=== PATIENT | male | born 1995 | race Caucasian/White ===

== ENCOUNTER 2023-08-15 11:48 | Emergency (ER) | payer BC, MEDICAID ==
[~2023-08-15] VITALS: Ht 177.8 cm; Wt 75.0 kg
[2023-08-15 12:01] VITALS: O2SAT 98
[2023-08-15 12:50] VITALS: BP 149/83; PULSE 100; RESP 20; TEMP 98.1
[2023-08-15] MEDS: CYCLOBENZAPRINE 10MG TABLET PO ONE (12:50)
[2023-08-15] MEDS: KETOROLAC 30MG/ML VIAL IM ONE (12:50)
[2023-08-15] MEDS: ACETAMINOPHEN 325MG TABLET PO ONE (12:50)
[2023-08-15] MEDS ORDERED: TOPUD MT (14:37)
[2023-08-15] MEDS ORDERED: NAPR375T5 MT (14:37)
[2023-08-15] MEDS ORDERED: CYCL5TAB MT (14:37)
== END 2023-08-15 14:56 | disposition home or self-care (01) ==
LOC: ER 14:42
DX: S16.1XXA Strain of muscle, fascia and tendon at neck level, initial encounter (principal); S39.012A Strain of muscle, fascia and tendon of lower back, initial encounter; V49.9XXA Car occupant (driver) (passenger) injured in unspecified traffic accident, initial encounter; Y93.89 Activity, other specified; Y92.89 Other specified places as the place of occurrence of the external cause; Y99.8 Other external cause status
CPT/HCPCS: 72040; 96372; 99283; J1885; Z7610